=== PATIENT | female | born 1990 | race Caucasian/White ===

== ENCOUNTER 2019-06-11 09:46 | Emergency (ER) | payer MEDICAID ==
[~2019-06-11] VITALS: Ht 177.8 cm; Wt 88.6 kg
[2019-06-11 10:02] VITALS: Ht 177.8 cm; Wt 88.6 kg
[2019-06-11] MEDS ORDERED: LITHIUM CARBON150 MG PO (10:03)
[2019-06-11] MEDS ORDERED: BUPRENORPHINE HC8 MG SL (10:04)
[2019-06-11] MEDS ORDERED: ESGIC TABLET1 TAB PO (10:04)
[2019-06-11] MEDS ORDERED: GABAPENTIN100 MG PO (10:05)
[2019-06-11] MEDS ORDERED: KLONOPIN1 MG PO (10:05)
[2019-06-11 11:12] LABS: BASOPHILS 0.1 % (0-2); EOSINOPHILS 0 % (0-7); HEMATOCRIT 39.4 % (36.0-48.0); HEMOGLOBIN 12.6 g/dL (12-16); IMMATURE GRANULOCYTES 0.2 % (0-5); LYMPHOCYTES 7.5 % (15-50); MCH 25.9 pg (26.0-34.0); MCV 81.1 fL (80.0-100.0); MEAN PLATELET VOLUME 9.2 fL (7.4-10.4); NEUTROPHILS 85.2 % (40-80); PLATELET COUNT 436 10x3/uL (130-400); RBC 4.86 10x6/uL (4.00-5.40); RDW 15.2 % (11.5-14.5); WBC 10.8 10x3/uL (4.8-10.8)
[2019-06-11 11:31] LABS: CALC OSMOLALITY 281 mosm/kg (275-300); CARBON DIOXIDE 24.6 mmol/L (21.0-32.0); CHLORIDE - SERUM 104 mmol/L (98-107); CREATININE - SERUM 0.6 mg/dL (0.6-1.3); GLUCOSE 78 mg/dL (74-106); POTASSIUM - SERUM 3.8 mmol/L (3.5-5.1); SODIUM 142 mmol/L (136-145); UREA NITROGEN 12 mg/dL (7-18); eGFR NON AFRICAN AMERICAN > 90 mL/min (90-120)
[2019-06-11 11:32] LABS: LITHIUM < 0.20 mmol/L (0.60-1.20)
[2019-06-11 11:37] LABS: ALBUMIN 4.1 g/dL (3.4-5.0); ALKALINE PHOSPHATASE 89 U/L (46-116); ALT (SGPT) 20 U/L (10-68); BILIRUBIN - TOTAL 0.47 mg/dL (0.2-1.3); PROTEIN - SERUM 8.3 g/dL (6.4-8.2)
[2019-06-11 13:27] LABS: UDS - AMPHET NEGATIVE QUAL (NEGATIVE); UDS - BARB NEGATIVE QUAL (NEGATIVE); UDS - BENZO NEGATIVE QUAL (NEGATIVE); UDS - COCAINE NEGATIVE QUAL (NEGATIVE); UDS - OPIATE NEGATIVE QUAL (NEGATIVE); UDS - PCP NEGATIVE QUAL (NEGATIVE); UDS - THC NEGATIVE QUAL (NEGATIVE)
[2019-06-11 13:28] LABS: HCG URINE NEGATIVE (NEGATIVE)
[2019-06-11 13:55] LABS: APPEARANCE HAZY (CLEAR); BACTERIA FEW /hpf (NEGATIVE); BILIRUBIN NEGATIVE (NEGATIVE); COLOR YELLOW (YELLOW); EPITHELIAL CELLS 0-5 /hpf (0-5); GLUCOSE NEGATIVE (NEGATIVE); KETONE LARGE mg/dL (NEGATIVE); MUCUS >1+ /lpf (NONE SEEN); NITRITE NEGATIVE (NEGATIVE); PROTEIN TRACE mg/dL (NEGATIVE); RED CELLS - URINE 0-5 /hpf (0-5); SPECIFIC GRAVITY 1.025 (1.005-1.020); UROBILINOGEN NORMAL (NORMAL); WHITE CELLS - URINE 0-5 /hpf (NEGATIVE)
[2019-06-11 17:00] VITALS: BP 147/95
== END 2019-06-11 22:51 ==
LOC: D.ER 09:46 → EDBD 09:46 → D.ER 22:51
PROVIDERS: Family Medicine
DX: F23 Brief psychotic disorder (principal); F31.9 Bipolar disorder, unspecified; Z91.14 Patient's other noncompliance with medication regimen